=== PATIENT | female | born 1995 | race Caucasian/White ===

== ENCOUNTER 2021-11-08 10:30 | Emergency (ER) | payer MEDICAID ==
[~2021-11-08] VITALS: Ht 152.4 cm; Wt 69.9 kg
[2021-11-08 10:46] VITALS: BP 87/54
--- NOTE | 2021-11-08 11:01 | NUR ---
PT AMBULATED TO BED 07.
[2021-11-08 13:24] LABS: BASOPHILS % (AUTO) 0.2 % (0.0-2.0); EOSINOPHILS # (AUTO) 0.1 K/uL (0-0.4); EOSINOPHILS % (AUTO) 1.1 % (0.0-4.0); HEMATOCRIT 38.4 % (36-48); HEMOGLOBIN 12.8 g/dL (12.0-16.0); LYMPHOCYTES # (AUTO) 1.6 K/uL (2.5-16.5); LYMPHOCYTES % (AUTO) 23.5 % (20.5-51.1); MEAN CORPUSCULAR HEMOGLOBIN 29 pg (27-31); MEAN CORPUSCULAR HGB CONC 33 g/dL (33-37); MEAN CORPUSCULAR VOLUME 86.9 fL (80-94); MONOCYTES # (AUTO) 0.3 K/uL (0.8-1.0); MONOCYTES % (AUTO) 4.7 % (1.7-9.3); NEUTROPHILS # (AUTO) 4.7 K/uL (1.8-7.7); NEUTROPHILS % (AUTO) 70.5 % (42.2-75.2); PLATELET COUNT (AUTO) 229 K/uL (140-450); RED BLOOD CELL COUNT(AUTO) 4.42 MIL/uL (4.20-5.40); RED CELL DISTRIBUTION WIDTH 14.1 % (11.6-13.7); WHITE BLOOD COUNT (AUTO) 6.7 K/uL (4.8-10.8)
[2021-11-08] MEDS ORDERED: PNV1TABL8 PO (13:31)
--- NOTE | 2021-11-08 13:40 | NUR ---
Ultrasound at bedside.
[2021-11-08 14:02] LABS: ALBUMIN 2.9 g/dL (3.4-5.0); ANION GAP 11.7 (8-16); CREATININE 0.5 mg/dL (0.6-1.3); POTASSIUM 4.7 mmol/L (3.5-5.1); TOTAL BILIRUBIN 0.2 mg/dL (0.0-1.0)
--- NOTE | 2021-11-08 14:37 | NUR ---
26/F PRESENTS TO ED REQUESTING CONFIRMATION OF . STATES SHE IS CURRENTLY IN A REHAB PROGRAM AND HAD A POSITIVE TEST, STATING THE REHAB IS REQUESTING VERIFICATION TO ALLOW HER BACK IN THE PROGRAM. PATIENT IS DENYING ABD PAIN, VAGINAL BLEEDING OR DISCHARGE. PATIENT IS .
[2021-11-08 14:53] VITALS: BP 101/56
--- NOTE | 2021-11-08 14:53 | NUR ---
Patient discharged with v/s stable. Written and verbal after care instructions given. Patient alert, oriented and verbalized understanding of instructions. Ambulatory with steady gait. All questions addressed prior to discharge. ID band removed. Patient advised to follow up with PMD. Rx of Vitamins given. Opportunity to ask questions provided and answered.
--- NOTE | 2021-11-08 14:55 | NUR ---
The patient's care was reviewed and supervised by Hanny Ramirez RN.
[2021-11-08 17:48] LABS: BILIRUBIN,URINE NEGATIVE (NEGATIVE); BLOOD, URINE NEGATIVE (NEGATIVE); COLOR,URINE YELLOW (YELLOW); LEUKOCYTE ESTERASE ,URINE TRACE (NEGATIVE); NITRITE, URINE NEGATIVE (NEGATIVE); UGLUCOSE NEGATIVE (NEGATIVE)
[2021-11-08 17:56] LABS: APPEARANCE,URINE HAZY (CLEAR)
== END 2021-11-08 14:53 | disposition home or self-care (01) ==
LOC: MED 10:30
DX: O26.892 Other specified pregnancy related conditions, second trimester (principal); Z00.00 Encounter for general adult medical examination without abnormal findings; Z3A.19 19 weeks gestation of pregnancy; Z79.899 Other long term (current) drug therapy
CPT/HCPCS: 36415; 76805; 80053; 81001; 81025; 85025; 86886; 86900; 86901; 99284; Q0092